=== PATIENT | male | born 1950 | race Caucasian/White ===

== ENCOUNTER 2017-06-11 08:50 | Outpatient (CLI) | payer BC, MEDICARE ==
[2017-06-11 11:06] LABS: Hematocrit 44.5 % (42.0-52.0); Mean Platelet Volume 7.4 fL (7.4-10.4); Red Blood Cell (RBC) Count 4.59 mill/uL (4.70-6.10); White Blood Cell (WBC) Count 6.2 thou/uL (4.8-10.8)
[2017-06-11 11:13] LABS: Prothrombin Time 12.4 SEC (12.0-14.7)
[2017-06-11 11:23] LABS: Anion Gap 12 mmol/L (10-20); BUN (Urea Nitrogen) 33 mg/dL (8.4-25.7); Calc. Creatinine Clearance 0 mL/min (70-130); Calcium 11.2 mg/dL (7.8-10.44); Carbon Dioxide 30 mmol/L (23-31); Chloride 103 mmol/L (98-107); Estimated GFR-MDRD 51
[2017-06-11 11:32] LABS: Bilirubin Negative (Negative); Blood, Urine Negative (Negative); Glucose, Urine (Dipstick) Negative (Negative); Ketone, Urine Negative (Negative); Nitrite Negative (Negative); Protein, Urine (Dipstick) Negative (Neg-Trace); Urobilinogen 0.2 mg/dL (0.2-1.0)
[2017-06-11 11:35] LABS: Bacteria/HPF None Seen HPF (None Seen); Hyaline Casts/LPF 0-3 HYALINE CAST LPF (0-3 Hyaline); RBC/HPF 0-3 HPF (0-3); Squamous Epithelial None Seen HPF (0-3); WBC/HPF None Seen HPF (0-3)
== END 2017-06-11 08:51 | disposition home or self-care (01) ==
LOC: LABBT 08:50
PROVIDERS: ATTEND Orthopaedic Surgery
DX: Z01.818 Encounter for other preprocedural examination (principal); M17.11 Unilateral primary osteoarthritis, right knee
CPT/HCPCS: 80048; 81001; 85027; 85610; 86850; 86900; 86901; 87081; 93005; 93010

== ENCOUNTER 2017-06-11 09:00 | Inpatient (IN) | payer BC, MEDICARE ==
--- NOTE | 2017-06-12 22:00 | HP ---
DATE OF ADMISSION: 06/17/2017 HISTORY OF PRESENT ILLNESS: The patient is a 66-year-old male with a 2-year history of progressive problems in his right knee, which became worse after falling. He has had progressive symptoms with rest, restriction of activities, anti-inflammatory medications, cortisone injections and Synvisc inj ections. He has had some pain with walking in certain motions, which is interfering with day-to-day activities. PAST MEDICAL HISTORY: The patient is otherwise in good health. He has a history of reflux and high cholesterol. MEDICATIONS: Include calcium, multivitamins, and Lipitor. FAMILY HISTORY: Otherwise, unremarkable. SOCIAL HISTORY: Otherwise, unremarkable. REVIEW OF SYSTEMS: Otherwise, unremarkable. The patient is a professor at [employer] PHYSICAL EXAMINATION: GENERAL: Reveals a healthy male. HEENT: Unremarkable. NECK: Supple. CHEST: Clear. HEART: Regular rate and rhythm. ABDOMEN: Soft, nontender. RECTAL: Deferred. GENITAL: Deferred. EXTREMITIES: Pertinent findings of the right knee, there is mild varus. There is trace effusion. There is tenderness over the medial joint line. There is slight crepitus. Range of motion is 3-120 degrees. There is no instability. NEUROVASCULAR: Intact. Distal pulses are 1+. LABORATORY AND X-RAY FINDINGS: X-rays of the right knee reveal medial joint space narrowing with mi nimal joint space remaining. MRI scan of the right knee reveals DJD, most marked medially and degen erative meniscal tears. IMPRESSION: Degenerative arthritis, right knee. PLAN: Right total knee replacement. The nature of the surgery, length of recovery, and potential c omplications such as infection, loss of motion, incomplete relief, thromboembolic phenomenon, neurov ascular injury, possible transfusion and need for revision have been discussed in detail.
[2017-06-17] MEDS ORDERED: Tranexamic Acid 1,000 MG/100 ML BAG ONE ×2 (06:18→08:49)
[2017-06-17] MEDS ORDERED: Ropivacaine 0.2% HCl/PF 20 ML ONE (06:30)
[2017-06-17] MEDS ORDERED: Midazolam HCl 2 mg/2 ml Vial ONE (06:30)
[2017-06-17] MEDS ORDERED: Fentanyl 100 MCG/2 ML VIAL ONE (06:30)
[2017-06-17] MEDS ORDERED: Lidocaine 1% w/Epinephrine 1:200K 30 ML VIAL ONE (06:37)
[2017-06-17] MEDS ORDERED: Bupivacaine 0.25% HCL 30 ML VIAL ONE (06:37)
[2017-06-17] MEDS ORDERED: Fentanyl 100 MCG/2 ML VIAL IV PRN (07:07)
[2017-06-17] MEDS ORDERED: Ondansetron HCl/PF 4 MG/2 ML Vial IVP PRN ×3 (07:07→10:07)
[2017-06-17] MEDS ORDERED: Ropivacaine HCl/PF 250 ML in Premix Bag 1 BAG NERVE BLCK SCH (07:07)
[2017-06-17] MEDS ORDERED: Promethazine HCl 25 MG/ML VIAL IM PRN ×2 (07:07→07:52)
[2017-06-17] MEDS ORDERED: Zolpidem Tartrate 5 MG TAB PO PRN ×2 (07:07→10:07)
[2017-06-17] MEDS ORDERED: HYDROcodone/Acetaminophen 10/325 mg Tablet PO PRN ×3 (07:07→10:07)
[2017-06-17] MEDS ORDERED: traMADol HCl 50 MG TAB PO PRN ×3 (07:07→10:07)
[2017-06-17] MEDS ORDERED: Propofol 200 MG/20 ML VIAL ONE (07:28)
[2017-06-17] MEDS ORDERED: Ondansetron HCl/PF 4 MG/2 ML Vial ONE (07:28)
[2017-06-17] MEDS ORDERED: Promethazine HCl 25 MG/ML VIAL SLOW IVP PRN ×2 (07:52→10:07)
[2017-06-17] MEDS ORDERED: Tranexamic Acid 1,000 MG in Sodium Chloride 0.9% 100 ML IVPB SCH ×2 (09:00→10:07)
[2017-06-17] MEDS ORDERED: Calcium Carbonate 500 MG ChewTAB PO PRN (10:07)
[2017-06-17] MEDS ORDERED: Fentanyl 100 MCG/2 ML VIAL SLOW IVP PRN ×2 (10:07)
[2017-06-17] MEDS ORDERED: diphenhydrAMINE HCl 25 MG CAP PO PRN (10:07)
[2017-06-17] MEDS ORDERED: Acetaminophen 325 MG TAB PO PRN (10:07)
--- NOTE | 2017-06-17 11:05 | OP ---
DATE OF PROCEDURE: 06/17/2017 SURGEON: Gera Ricks M.D. [employer] OPERATOR: True Dukes PA-C. ANESTHESIA: General plus femoral sciatic nerve blocks. PREOPERATIVE DIAGNOSIS: Degenerative arthritis of right knee. POSTOPERATIVE DIAGNOSIS: Degenerative arthritis of right knee. PROCEDURES: Right total knee replacement with cemented Triathlon components with computer-assisted navigation. NARRATIVE REPORT: After satisfactory anesthesia was induced in the supine position, sequential comp ression device was placed on the non-operative leg throughout the procedure. The right leg was elev ated, exsanguinated with an Esmarch bandage, and the tourniquet inflated to 250 mmHg. A gently curv ed medial parapatellar incision was made and carried down to subcutaneous tissues, and bleeding poin ts controlled with Bovie cautery. Medial parapatellar arthrotomy was performed. Patella was disloc ated laterally and portions of the fat pad were excised for exposure. There was marked DJD of the k nee, especially patellofemoral joint and medially, with large areas of exposed bone. Meniscal remna nts and osteophytes were removed. Using the appropriate guides and the [employer] pinless navigation s ystem, the distal femoral and proximal tibial articular surfaces were excised with an oscillating sa w to accept the trial components. It was felt that a #5 femoral component and #5 tibial baseplate w ith 13 mm CS plastic insert gave appropriate size, fit, stability, and correction of the preoperativ e deformity. The patellar articular surface was excised to accept an all plastic A32 patellar compo nent. The trial components were removed. The posterior capsule and subcutaneous tissues were injec nils with a mixture of 30 mL of 0.25% Marcaine and 60 mL of 1% lidocaine with epinephrine. The knee was copiously irrigated with pulsatile lavage and bony surfaces thoroughly cleaned and dried. The p ermanent components were then cemented in a single stage using 1 package of cement premixed with 1 g casey of tobramycin powder. Excess cement was removed. There was again good fit and stability of the components. The knee was again copiously irrigated. The medial retinaculum and quadriceps mechani sm was closed with interrupted #2 Vicryl and a running #2 Quill. Subcutaneous tissues were closed w ith running 0 Quill suture and the skin closed with running subcuticular 3-0 Monoderm and SurgiSeal skin adhesive. Sterile bulky compressive dressing was applied and the tourniquet deflated after 66 minutes. The foot promptly pinked up. A sequential compression device was applied on the operated leg and he was awakened and taken to recovery in stable condition. There were no apparent intraoper ative complications. The estimated blood loss was less than 100 mL.
[2017-06-17] MEDS: Ferrous Gluconate 324 MG TAB PO SCH ×2 (11:06→20:57)
[2017-06-17] MEDS: Senokot S 8.6-50 MG TAB PO SCH ×2 (11:06→20:57)
[2017-06-17] MEDS: Multivitamin W/ Minerals 1 TAB PO SCH (11:07)
--- NOTE | 2017-06-17 11:14 | RAD ---
RADIOGRAPH RIGHT KNEE 2 VIEWS: Date: 06/17/17 Time: 0835 hours HISTORY: 66-year-old male status post left knee surgery. COMPARISON: None. FINDINGS: Metallic prostheses cover the articular surfaces of the distal femur and tibial plateau. Resurfacing changes of the posterior aspect of the patella. Suprapatellar joint fluid and moderate amount of an terior subcutaneous emphysema. Incidental finding of an exostosis protruding posteriorly from the pr oximal fibular metaphysis. IMPRESSION: Immediately status post total right knee replacement arthroplasty. POS: [facility]
[2017-06-17] MEDS: Atorvastatin Calcium 20 MG TAB PO SCH (11:31)
[2017-06-17] MEDS: Ascorbic Acid 500 mg Chewable Tablet PO SCH (11:34)
[2017-06-17] MEDS: Calcium Carbonate + Vit D 1 TAB PO SCH ×2 (11:35→20:57)
[2017-06-17] MEDS: Sodium Chloride 0.9% 1,000 ML IV SCH ×2 (11:35→18:33)
[2017-06-17] MEDS ORDERED: Ketorolac Tromethamine 30 MG/ML VIAL IVP SCH (12:00)
[2017-06-17] MEDS ORDERED: Vancomycin HCl 1 GM in Premix Bag 1 BAG IVPB SCH (18:00)
[2017-06-17] MEDS: HYDROcodone/Acetaminophen 10/325 mg Tablet PO PRN (21:00)
[2017-06-18] MEDS: HYDROcodone/Acetaminophen 10/325 mg Tablet PO PRN ×6 (01:07→23:13)
[2017-06-18] MEDS: Sodium Chloride 0.9% 1,000 ML IV SCH ×2 (05:36→17:18)
[2017-06-18 06:24] LABS: Hematocrit 39.4 % (42.0-52.0); Mean Platelet Volume 6.9 fL (7.4-10.4); Red Blood Cell (RBC) Count 4.02 mill/uL (4.70-6.10); White Blood Cell (WBC) Count 12.2 thou/uL (4.8-10.8)
[2017-06-18] MEDS: Calcium Carbonate + Vit D 1 TAB PO SCH ×2 (08:14→20:29)
[2017-06-18] MEDS: Ascorbic Acid 500 mg Chewable Tablet PO SCH (08:14)
[2017-06-18] MEDS: Multivitamin W/ Minerals 1 TAB PO SCH (08:15)
[2017-06-18] MEDS: Senokot S 8.6-50 MG TAB PO SCH ×2 (08:15→20:29)
[2017-06-18] MEDS: Ferrous Gluconate 324 MG TAB PO SCH ×2 (08:15→20:29)
[2017-06-18] MEDS: Atorvastatin Calcium 20 MG TAB PO SCH (08:15)
[2017-06-18 12:15] VITALS: BMI 23.6
[2017-06-19] MEDS: Sodium Chloride 0.9% 1,000 ML IV SCH (01:12)
[2017-06-19] MEDS: HYDROcodone/Acetaminophen 10/325 mg Tablet PO PRN ×2 (06:15→10:09)
[2017-06-19] MEDS: Ascorbic Acid 500 mg Chewable Tablet PO SCH (07:34)
[2017-06-19] MEDS: Ferrous Gluconate 324 MG TAB PO SCH (07:34)
[2017-06-19] MEDS: Atorvastatin Calcium 20 MG TAB PO SCH (07:35)
[2017-06-19] MEDS: Calcium Carbonate + Vit D 1 TAB PO SCH (07:35)
[2017-06-19] MEDS: Senokot S 8.6-50 MG TAB PO SCH (07:35)
[2017-06-19] MEDS: Multivitamin W/ Minerals 1 TAB PO SCH (07:35)
[2017-06-19 11:32] VITALS: BP 151/75; TEMP 98.6
[2017-06-19] MEDS ORDERED: FLU VACC TS2017-18 (>65YR) 0.5 ML SYRINGE IM ONE (21:00)
== END 2017-06-19 15:29 | disposition home or self-care (01) | DRG 470 ==
LOC: SJJU 06-17 05:35
PROVIDERS: ADMIT Orthopaedic Surgery; ATTEND Orthopaedic Surgery
PROC: 0SRC0J9 Replacement of Right Knee Joint with Synthetic Substitute, Cemented, Open Approach (ICD-10-PCS; principal; 2017-06-17)
PROC: 8E0YXBZ Computer Assisted Procedure of Lower Extremity (ICD-10-PCS; 2017-06-17)
PROC: 3E0T3BZ Introduction of Anesthetic Agent into Peripheral Nerves and Plexi, Percutaneous Approach (ICD-10-PCS; 2017-06-17)
DX: M17.11 Unilateral primary osteoarthritis, right knee (principal); E78.5 Hyperlipidemia, unspecified; Z87.891 Personal history of nicotine dependence
CPT/HCPCS: 36415; 85027; 90471; 90682; A4216; C1713; C1776; G0008; G8978-GP-CK; G8979-GP-CI; J2250; J2405; J2704; J2795; J3010; J3370; Q2036; S0020